=== PATIENT | male | born 1950 ===

== ENCOUNTER 2019-06-09 20:57 | Emergency (ER) | payer SELFPAY ==
[2019-06-09 21:46] LABS: Basophils # (Auto) 0.1 K/mm3 (0.0-0.1); Basophils % (Auto) 0.7 % (0.0-1.8); Eosinophils # (Auto) 0.2 K/mm3 (0.0-0.4); Eosinophils % (Auto) 2.4 % (0.0-4.3); Hematocrit 41.8 % (35.5-45.6); Hemoglobin 14.1 gm/dl (11.8-15.2); Lymphocytes # (Auto) 2.7 K/mm3 (1.2-5.4); Lymphocytes % (Auto) 36.8 % (13.4-35.0); Mean Corpuscular HGB Conc 34 % (32-34); Mean Corpuscular Volume 89 fl (84-94); Monocytes # (Auto) 0.9 K/mm3 (0.0-0.8); Monocytes % (Auto) 12.4 % (0.0-7.3); Platelet Count 177 K/mm3 (140-440); Red Blood Count 4.71 M/mm3 (3.65-5.03); Red Cell Distribution Width 15.5 % (13.2-15.2)
--- NOTE | 2019-06-09 21:59 | XRay Report ---
CHEST 1 VIEW 06/09/2019 9:39 PM INDICATION / CLINICAL INFORMATION: Chest Pain. COMPARISON: None available. FINDINGS: SUPPORT DEVICES: None. HEART / MEDIASTINUM: No significant abnormality. LUNGS / PLEURA: No significant pulmonary or pleural abnormality. No pneumothorax. ADDITIONAL FINDINGS: No significant additional findings. IMPRESSION: 1. No acute findings. Signer Name: César Daniel MD Signed: 06/09/2019 9:54 PM Workstation Name: [id number]
[2019-06-09 22:01] LABS: BUN/Creatinine Ratio 16; Blood Urea Nitrogen 21 mg/dL (9-20); Calcium 8.5 mg/dL (8.4-10.2); Hemolysis Index 13
--- NOTE | 2019-06-09 22:22 | Emergency Department Report ---
ED General Adult HPI - General Chief complaint: High BP Stated complaint: HBP Time Seen by Provider: 06/09/19 21:55 Source: patient, family, educational interpreter, RN notes reviewed Mode of arrival: Ambulatory Limitations: Language Barrier - History of Present Illness Initial comments: Residential Substance Abuse Counselor number: [id number] This is a 69-year-old gentleman who is not known to this provider previously. He is currently visiting from [place]. He ran out of his enalapril, 20 mg. He presents to the ER with a primary complaint of request for medication refill. He reports that he has a history of anxiety, and after running out of his medicine, developed a frontal headache, not sudden or thunderclap in nature, generalized dizziness, described as a sensation of feeling unsteady, and he endorses bilateral numbness in his bilateral upper and lower extremities. There is no vomiting. There is no chest pain. There is no shortness of breath. He denies loss of vision. This is now resolved. He has no complaints at this time. The headache is not sudden or thunderclap in nature. The headache is described as gentle. It improved with [id number] garlic. He has no complaints currently, and he is requesting to have his medications refilled. -: Gradual Location: head Consistency: now resolved Improves with: none Worsens with: none - Related Data Previous Rx's Medication Instructions Recorded Last Taken Type Aspirin [Aspirin BABY CHEW TAB] 81 mg PO QDAY #30 tab.chew 06/09/19 Unknown Rx Enalapril Maleate [Vasotec] 20 mg PO DAILY #30 tablet 06/09/19 Unknown Rx Allergies Allergy/AdvReac Type Severity Reaction Status Date / Time No Known Allergies Allergy Unverified 06/09/19 21:12 ED Review of Systems ROS: Stated complaint: HBP Other details as noted in HPI Constitutional: denies: fever Eyes: denies: eye discharge ENT: denies: congestion Respiratory: denies: wheezing Cardiovascular: palpitations. denies: syncope Gastrointestinal: denies: vomiting Genitourinary: denies: dysuria Musculoskeletal: denies: back pain Neurological: headache, numbness. denies: weakness, abnormal gait Psychiatric: anxiety ED Past Medical Hx - Past Medical History Previous Medical History?: Yes Hx Hypertension: Yes Additional medical history: High Cholesterol, Stomach ulcer - Surgical History Past Surgical History?: Yes Hx Appendectomy: Yes Additional Surgical History: Lower Back surgery L3 and L4, Left elbow surgery - Social History Smoking Status: Current Every Day Smoker - Medications Home Medications: Home Medications Medication Instructions Recorded Confirmed Last Taken Type Aspirin [Aspirin BABY CHEW TAB] 81 mg PO QDAY #30 tab.chew 06/09/19 Unknown Rx Enalapril Maleate [Vasotec] 20 mg PO DAILY #30 tablet 06/09/19 Unknown Rx ED Physical Exam - General Limitations: Language Barrier General appearance: alert, in no apparent distress - Head Head exam: Present: atraumatic, normocephalic - Eye Eye exam: Present: normal appearance, PERRL, EOMI, other (visual acuity intact to finger counting and color perception to a close distance). Absent: nystagmus - ENT ENT exam: Present: normal exam, normal orophraynx, mucous membranes moist, normal external ear exam - Neck Neck exam: Present: normal inspection, full ROM. Absent: tenderness, meningismus - Respiratory Respiratory exam: Present: normal lung sounds bilaterally. Absent: respiratory distress, wheezes, rales, rhonchi, stridor - Cardiovascular Cardiovascular Exam: Present: regular rate, normal rhythm, normal heart sounds. Absent: bradycardia, tachycardia, irregular rhythm, systolic murmur, diastolic murmur, rubs, gallop - GI/Abdominal GI/Abdominal exam: Present: soft. Absent: distended, tenderness, guarding, r ebound, rigid, pulsatile mass - Rectal Rectal exam: Present: deferred - Extremities Exam Extremities exam: Present: normal inspection, full ROM, other (2+ pulses noted in the bilateral upper, lower extremities. There is no long bone tenderness. Musculoskeletal compartments are soft. The pelvis is stable.). Absent: pedal edema, calf tenderness - Back Exam Back exam: Present: normal inspection, full ROM. Absent: tenderness, CVA tenderness (R), CVA tenderness (L), paraspinal tenderness, vertebral tenderness - Neurological Exam Neurological exam: Present: alert, oriented X3, normal gait, other (there is no facial droop. The tongue is midline. Extraocular movements are intact bilaterally. Patient speaking in full complete sentences. Shoulder shrug is intact bilaterally. Hearing is grossly intact bilaterally. Visual acuity inta ct to finger counting and color perception at a close distance. 5/5 strength 4 extremities. Sensation intact to light touch in 4 extremities.). Absent: motor sensory deficit - Psychiatric Psychiatric exam: Present: flat affect - Skin Skin exam: Present: warm, dry, intact, normal color. Absent: rash ED Course Vital Signs 06/09/19 06/09/19 06/09/19 21:03 21:19 21:51 Temperature 97.7 F 97.7 F Pulse Rate 74 72 65 Respiratory 18 18 Rate Blood Pressure 178/92 178/92 Blood Pressure 172/92 [Left] O2 Sat by Pulse 97 98 Oximetry ED Medical Decision Making - Lab Data Result diagrams: 06/09/19 21:36 06/09/19 21:36 Vital Signs 06/09/19 06/09/19 06/09/19 21:03 21:19 21:51 Temperature 97.7 F 97.7 F Pulse Rate 74 72 65 Respiratory 18 18 Rate Blood Pressure 178/92 178/92 Blood Pressure 172/92 [Left] O2 Sat by Pulse 97 98 Oximetry Lab Results 06/09/19 06/09/19 06/09/19 Range/Units 21:36 21:36 21:36 WBC 7.4 (4.5-11.0) K/mm3 RBC 4.71 (3.65-5.03) M/mm3 Hgb 14.1 (11.8-15.2) gm/dl Hct 41.8 (35.5-45.6) % MCV 89 (84-94) fl MCH 30 (28-32) pg MCHC 34 (32-34) % RDW 15.5 H (13.2-15.2) % Plt Count 177 (140-440) K/mm3 Lymph % (Auto) 36.8 H (13.4-35.0) % [place] % (Auto) 12.4 H (0.0-7.3) % Eos % (Auto) 2.4 (0.0-4.3) % Baso % (Auto) 0.7 (0.0-1.8) % Lymph # 2.7 (1.2-5.4) K/mm3 [place] # 0.9 H (0.0-0.8) K/mm3 Eos # 0.2 (0.0-0.4) K/mm3 Baso # 0.1 (0.0-0.1) K/mm3 Seg Neutrophils % 47.7 (40.0-70.0) % Seg Neutrophils # 3.5 (1.8-7.7) K/mm3 Sodium 138 (137-145) mmol/L Potassium 4.0 (3.6-5.0) mmol/L Chloride 102.7 (98-107) mmol/L Carbon Dioxide 24 (22-30) mmol/L Anion Gap 15 mmol/L BUN 21 H (9-20) mg/dL Creatinine 1.3 (0.8-1.5) mg/dL Estimated GFR 55 ml/min BUN/Creatinine Ratio 16 % Glucose 108 H (75-100) mg/dL Calcium 8.5 (8.4-10.2) mg/dL Magnesium 2.20 (1.7-2.3) mg/dL Total Creatine Kinase 560 H (55-170) units/L Troponin T < 0.010 (0.00-0.029) ng/mL - EKG Data -: EKG Interpreted by Sc EKG shows normal: sinus rhythm Rate: normal - EKG Data When compared to previous EKG there are: previous EKG unavailable 06/09/19 23:10 There is no prior EKG available for comparison. The EKG shows a sinus rhythm, 67 bpm, normal axis, QTC 418 ms, the EKG is not consistent with ST elevation myocardial infarction. - Radiology Data Radiology results: pending, report reviewed, image reviewed Noncontrast CT scan of the brain is negative for acute disease. X-ray the chest is negative for acute disease. - Medical Decision Making Differential diagnosis, including not limited to: Medication refill, anxiety, general medical examination, intracranial lesion Assessment and plan: 69-year-old gentleman with a primary complaint of medication refill, secondary complaint of ejection supposed anxiety, headache, bilateral upper and lower extremity numbness, now resolved. He is afebrile with reassuring vital signs with the exception of hypertension. Please reference the [employer] clinical policy and hypertension which is asymptomatic. GCS of 15, NIH score of 0, walks with a steady gait, there is no past-pointing, there is no pronator drift, there is normal unne-dz-oron, and there is a negative Romberg examination. 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 Patient's medication will be refilled, he'll be started on aspirin, he'll need to follow-up with an outpatient primary care doctor and/or neurologist. At this point time, he does not appear to have an objectively demonstrated emergent medical condition. Critical care attestation.: If time is entered above; I have spent that time in minutes in the direct care of this critically ill patient, excluding procedure time. ED Disposition Clinical Impression: Medication refill, Hypertension Disposition: TO HOME OR SELFCARE Is pt being admited?: No Does the pt Need Aspirin: No Condition: Stable Instructions: Hypertension (ED) Additional Instructions: Take the medications as directed. Follow-up with a primary care doctor or neurologist within the next 7-10 days. Return to the emergency room right away with new, worsened, different symptoms, or symptoms not present on the initial emergency room evaluation. [place] los medicamentos segn las indicaciones. John un seguimiento con un mdico de atencin primaria o neurlogo dentro de los prximos 7-10 chisholm. Regrese a la martin de emergencias de inmediato con sntomas nuevos, empeorados, diferentes o sntomas que no estn presentes en la evaluacin inicial de la martin de emergencias. Referrals: [facility] [Provider Group] - 7-10 days [facility] [Provider Group] - 7-10 days ROXANE RUBIN MD [Referring] - 7-10 days (neurology) ARELI REGALADO MD [Staff Physician] - 7-10 days (neurology) Print Language: UKRAINIAN
--- NOTE | 2019-06-09 22:50 | Cat Scan Report ---
CT HEAD WITHOUT CONTRAST INDICATION / CLINICAL INFORMATION: stewart dizzy. TECHNIQUE: All CT scans at this location are performed using CT dose reduction for ALARA by means of automated e xposure control. COMPARISON: None available. FINDINGS: HEMORRHAGE: None. EXTRA-AXIAL SPACES: Normal in size and morphology for the patient's age. VENTRICULAR SYSTEM: Normal in size and morphology for the patient's age. CEREBRAL PARENCHYMA: No significant abnormality. No acute territorial infarct. MIDLINE SHIFT OR HERNIATION: None. CEREBELLUM / BRAINSTEM: No significant abnormality. ORBITS: Normal as visualized. SOFT TISSUES of HEAD: No significant abnormality. CALVARIUM: No significant abnormality. PARANASAL SINUSES / MASTOID AIR CELLS: Normal as visualized. ADDITIONAL FINDINGS: None. IMPRESSION: 1. No acute intracranial abnormality. Signer Name: César Daniel MD Signed: 06/09/2019 10:46 PM Workstation Name: [id number]
[2019-06-09 23:24] VITALS: BP 162/93
== END 2019-06-09 23:25 | disposition home or self-care (01) ==
LOC: ED 20:57
DX: Z76.0 Encounter for issue of repeat prescription (principal); I10 Essential (primary) hypertension; Z87.11 Personal history of peptic ulcer disease; Z90.49 Acquired absence of other specified parts of digestive tract; Z98.890 Other specified postprocedural states; F17.200 Nicotine dependence, unspecified, uncomplicated; Z79.82 Long term (current) use of aspirin; Z79.899 Other long term (current) drug therapy
CPT/HCPCS: 36415; 70450; 71045; 80048; 82550; 83735; 84484; 85025; 93005; 93010